=== PATIENT | female | born 1975 | race Caucasian/White ===

== ENCOUNTER 2016-09-12 10:02 | Emergency (ER) | payer OTHER ==
[2016-09-12 10:10] VITALS: TEMP 98; O2SAT 100; BMI 30.8
[2016-09-12 11:37] LABS: BASO % 0.5 % (0.0-2.0); EOS # 0.2 K/uL (0.0-0.7); HEMATOCRIT 45.4 % (34.0-47.0); LYMPH # 2.3 K/uL (1.0-4.3); LYMPH % 29.5 % (20.0-40.0); MEAN CELL VOLUME 90.1 fL (81.0-99.0); MEAN CORPUSCULAR HEMOGLOBIN 30.2 pg (27.0-31.0); MEAN CORPUSCULAR HGB CONC 33.5 g/dL (33.0-37.0); MEAN PLATELET VOLUME 9.3 fL (7.2-11.7); MONO # 0.5 K/uL (0.0-0.8); MONO % 6.7 % (0.0-10.0); NRBC % 0.1 % (0.0-2.0); RED CELL DISTRIBUTION WIDTH 13.2 % (11.5-14.5); WHITE BLOOD COUNT 7.9 K/uL (4.8-10.8)
[2016-09-12 11:44] LABS: CHLORIDE 101 mmol/L (98-107); POTASSIUM 3.9 mmol/L (3.6-5.2); SODIUM 141 mmol/L (132-148)
[2016-09-12 11:46] LABS: BILIRUBIN,TOTAL 0.4 mg/dL (0.2-1.3); GFR AFRICAN-AMERICAN > 60
[2016-09-12 11:47] LABS: ALB/GLOB RATIO 1.1 (1.0-2.1); ALKALINE PHOSPHATASE 109 U/L (38-126); ALT/SGPT 52 U/L (9-52); AST/SGOT 45 U/L (14-36); BLOOD UREA NITROGEN 8 mg/dL (7-17); CALCIUM 9.4 mg/dl (8.6-10.4); CARBON DIOXIDE 24 mmol/L (22-30); GLUCOSE,RANDOM 106 mg/dL (65-105); TOTAL PROTEIN 8.7 g/dL (6.3-8.3)
[2016-09-12 11:49] LABS: RBC URINE < 1 /hpf (0-3); URINE BACTERIA RARE (<OCC); URINE BILIRUBIN NEGATIVE (NEGATIVE); URINE BLOOD NEGATIVE (NEGATIVE); URINE COLOR Straw (YELLOW); URINE GLUCOSE (UA) NORMAL (Normal); URINE KETONE NEGATIVE (NEGATIVE); URINE LEUKOCYTE ESTERASE TRACE Leu/uL (Negative); URINE PROTEIN NEGATIVE (NEGATIVE); URINE UROBILINOGEN NORMAL mg/dL (0.2-1.0); WBC URINE 1 /hpf (0-5)
[2016-09-12 12:51] VITALS: BP 121/78; PULSE 75; RESP 20
--- NOTE | 2016-09-12 13:07 | C.PDOC ---
History Of Present Illness 41y/o female, presents to the emergency department with complaints of non- traumatic pain in all four extremities. Denies numbness/weakness, nausea/ vomiting, fevers, chills, or any other associated symptoms. No other complaints at this time. Chief Complaint (Nursing): Upper Extremity Problem/Injury History Per: Patient History/Exam Limitations: no limitations Onset/Duration Of Symptoms: Days Current Symptoms Are (Timing): Still Present Past Medical History Reviewed: Historical Data, Nursing Documentation, Vital Signs Vital Signs: Last Vital Signs Temp 98.0 F 09/12/16 12:51 Pulse 75 09/12/16 12:51 Resp 20 09/12/16 12:51 BP 121/78 09/12/16 12:51 Pulse Ox 100 09/12/16 16:02 - [employer] Procedures INJECT/INFUSE NEC (11/05/12) Family History: States: Unknown Family Hx - Social History Hx Alcohol Use: No Hx Substance Use: No - Immunization History Hx Tetanus Toxoid Vaccination: No Hx Influenza Vaccination: No Review Of Systems Except As Marked, All Systems Reviewed And Found Negative. Constitutional: Negative for: Fever Respiratory: Negative for: Cough, Shortness of Breath Gastrointestinal: Negative for: Vomiting Musculoskeletal: Positive for: Arm Pain, Hand Pain, Leg Pain, Foot Pain Skin: Negative for: Rash Neurological: Negative for: Weakness, Numbness Physical Exam - Physical Exam Appears: Non-toxic, No Acute Distress Skin: Warm, Dry, No Rash Head: Atraumatic, Normacephalic Eye(s): bilateral: Normal Inspection, PERRL Nose: Normal Oral Mucosa: Moist Lips: Normal Appearing Neck: Normal ROM Respiratory: No Accessory Muscle Use Extremity: Normal ROM, No Tenderness, No Deformity, No Swelling Neurological/Psych: Oriented x3, Normal Speech ED Course And Treatment - Laboratory Results Result Diagrams: 09/12/16 11:31 09/12/16 11:31 O2 Sat by Pulse Oximetry: 100 Medical Decision Making Medical Decision Making: Impression Pain in all extremities. Plan: * CMP, C Phos * CBC, ESR * Urinalysis/HCG * Reassess and Disposition Disposition: Patients labs are WNL. She will be discharged for outpatient f/u with PMD. All questions answered. Patient agreeable with plan. Disposition - Disposition Referrals: [facility] [Outside] [facility] [Outside] Disposition: HOME/ ROUTINE Disposition Time: 13:04 Condition: GOOD Additional Instructions: Follow up with PMD within 1-2 days. Return to ED if feel worse. Prescriptions: Ibuprofen [Motrin Tab] 400 mg PO Q8 #30 tab Instructions: Ibuprofen (By mouth) Print Language: BAHRAINI - Clinical Impression Clinical Impression: Extremity pain - Scribe Statement The provider has reviewed the documentation as recorded by the Ankita Vargas All medical record entries made by the Ankita were at my direction and personally dictated by me. I have reviewed the chart and agree that the record accurately reflects my personal performance of the history, physical exam, medical decision making, and the department course for this patient. I have also personally directed, reviewed, and agree with the discharge instructions and disposition.
== END 2016-09-12 13:46 | disposition home or self-care (01) ==
LOC: C.ER 10:02
DX: M79.602 Pain in left arm (principal); M79.601 Pain in right arm; M79.642 Pain in left hand; M79.641 Pain in right hand; M79.605 Pain in left leg; M79.604 Pain in right leg; M79.672 Pain in left foot; M79.671 Pain in right foot